=== PATIENT | female | born 1985 | race Caucasian/White ===

== ENCOUNTER 2018-10-19 16:31 | Emergency (ER) | payer OTHER, MEDICAID, SELFPAY ==
[2018-10-19 16:36] VITALS: BP 135/95; PULSE 87; RESP 18; TEMP 36.4; O2SAT 100; BMI 32.4
[2018-10-19] MEDS: ONDANSETRON 4 MG ODT PO (16:41)
--- NOTE | 2018-10-19 18:42 | ED.NAVMDI ---
HPI - Nausea/Vomiting/Diarrhea General Chief complaint: Nausea/Vomiting/Diarrhea Stated complaint: dizzy and vomiting Time Seen by Provider: 10/19/18 18:32 Source: patient Mode of arrival: ambulatory Limitations: no limitations History of Present Illness HPI Narrative: Patient states she nausea and vomiting all day as well as dizziness. She denies diarrhea, fever that is measurable, though she says she has had a feeling of fever and chills, abdominal pain, chest pain, cough, or dysuria. She states she is otherwise healthy. Patient states that she mainly feels dizzy when she moves, but has no history of vertigo. No other complaints this time. She is not known to be . Related Data Previous Rx's Medication Instructions Recorded ondansetron 4 mg PO Q6-8H PRN #7 tab 10/19/18 Allergies Allergy/AdvReac Type Severity Reaction Status Date / Time No Known Drug Allergies Allergy Verified 10/19/18 16:38 Review of Systems Constitutional Denies chills, Denies fever(s), Denies lethargy and Denies weakness Eyes Denies change in vision, Denies eye discharge, Denies irritation and Denies loss of vision ENT Ears, Nose, Mouth, and Throat: Denies change in voice, Reports dizziness, Denies neck pain and Denies sore throat Cardiovascular Denies chest pain, Denies irregular heart rhythm, Denies lightheadedness, Denies palpitations, Denies dyspnea, Denies dyspnea on exertion and Denies orthopnea Respiratory Denies cough, Denies dyspnea, Denies dyspnea on exertion and Denies wheezing Gastrointestinal Gastrointestinal: Denies abdominal pain, Denies change in bowel habits, Denies diarrhea, Reports nausea and Reports vomiting Genitourinary Denies hematuria, Denies flank pain, Denies urinary incontinence and Denies urinary urgency Musculoskeletal Denies neck pain Integumentary/Breasts Denies pruritus, Denies erythema, Denies rash and Denies wounds Neurologic Denies confusion, Reports dizziness, Denies loss of vision and Denies weakness Psychiatric Denies anxiety, Denies confusion, Denies depression, Denies homicidal ideation and Denies suicidal ideation Endocrine Denies palpitations Hematologic/Lymphatic Denies easy bruising Allergic/Immunologic Denies wheezing [facility] Medical History Healthy adult (Acute) Surgical History No pertinent past surgical history (Acute) Social History Smoking Status: Never smoker Exam Initial Vital Signs Initial Vital Signs: Vital Signs Temperature 97.6 F 10/19/18 16:36 Pulse Rate 87 10/19/18 16:36 Respiratory Rate 18 10/19/18 16:36 Blood Pressure 135/95 H 10/19/18 16:36 Pulse Oximetry 100 10/19/18 16:36 Const General: cooperative and well developed Nutritional Appearance: well nourished Orientation: alert, awake, oriented x3 and not confused [facility] Head: normocephalic and atraumatic Ears: external ears normal Nose: external nose normal and No nasal discharge Face and sinus: face symmetric and No dry mucous membranes Mouth: oral mucosae normal and moist mucous membranes Teeth and gingiva: dentition normal Eyes General: appearance normal, both eyes and all related structures Eyelids: eyelids normal Conjunctivae: conjunctivae normal Sclera: sclerae normal Pupils: PERRL EOM: EOM intact bilaterally Neck Neck: normal visual inspection, trachea midline, No lymphadenopathy, No midline deformity and No JVD Lymphatic: No lymphedema Chest Chest: normal inspection of the chest Resp Effort & Inspection: normal respiratory effort, able to speak in complete sentences, no respiratory distress and no use of accessory muscles Auscultation: clear to auscultation bilaterally, no rales, no rhonchi and no wheezes Cardio Rate: regular rate Rhythm: regular rhythm Heart Sounds: no click, no gallops, no murmurs and no rubs Pulses: normal peripheral pulses GI Inspection: non-distended Palpation: soft, no hepatosplenomegaly, No guarding, No pulsatile mass and No tender Back/Spine/Pelvis Back: No CVA tenderness Cervical Spine: cervical ROM normal and No pain with cervical ROM Thoracic/Lumbar Spine: thoracic and lumbar spine normal to inspection Skin General: no rashes or lesions noted, No jaundice and No petechiae Neuro General: alert, oriented x3, gait normal and no focal motor deficits Speech: speech normal Extrem General: full ROM, no clubbing, cyanosis or edema, no pedal edema and no calf tenderness Psych Appearance: well kempt Mental Status: mental status grossly normal Attitude: cooperative Thought Content: normal and suicidality Judgment: judgment good Course Course Narrative: Patient was given ODT Zofran, but she did vomit this up, so IV was started and patient was given IV Zofran. She was also given L 0.9 normal saline. Patient's presentation was benign, and she had no abdominal pain or fever, and I did not feel further workup was indicated. I have advised the patient that she most likely has a viral illness which will be self limited. We have discussed symptomatic management home as well as the usual indications for return. Pt requested one more dose of nausea medicine, so she was given Reglan. Orders Ordered: Discontinued Medications Sodium Chloride (Normal Saline 0.9%) 1,000 mls @ 1,000 mls/hr IV BOLUS ONE Stop: 10/19/18 19:42 Sodium Chloride (Normal Saline 0.9%) 1,000 mls @ 1,000 mls/hr IV BOLUS ONE Stop: 10/19/18 19:42 Last Infusion: 10/19/18 20:02 Dose: 0 mls/hr Admin: 10/19/18 18:47 Dose: 1,000 mls/hr Sodium Chloride (Normal Saline 0.9%) 1,000 mls @ 1,000 mls/hr IV BOLUS ONE Stop: 10/19/18 19:42 Last Admin: 10/19/18 18:45 Dose: Metoclopramide HCl (Reglan) 10 mg IV NOW ONE Stop: 10/19/18 20:20 Last Admin: 10/19/18 20:34 Dose: 10 mg Ondansetron HCl (Zofran Odt) 4 mg PO NOW ONE Stop: 10/19/18 16:39 Last Admin: 10/19/18 16:41 Dose: 4 mg Ondansetron HCl (Zofran) 4 mg IV NOW ONE Stop: 10/19/18 18:44 Last Admin: 10/19/18 18:46 Dose: 4 mg Vital Signs - 8 hr 10/19/18 16:36 10/19/18 19:19 10/19/18 20:40 Temperature 97.6 F Pulse Rate 87 57 L 80 Respiratory Rate 18 12 20 Blood Pressure 135/95 H 118/62 Blood Pressure [Right Arm] 110/61 Pulse Oximetry 100 100 98 MDM - Nausea/Vomiting/Diarrhea Medical Records Attestation: I reviewed the patient's medical records. Discharge Plan Departure Patient Disposition: Home Clinical Impression: Acute viral syndrome, Vomiting Discharge Date/Time: 10/19/18 20:41 Interventions: ED Discharge Assessment Last Done: 10/19/18 20:40 Instructions: DI for Vomiting -- Adult Prescriptions: New ondansetron 4 mg tablet,disintegrating 4 mg PO Q6-8H PRN (Reason: nausea and vomiting) Qty: 7 RF: 0 Referrals: [facility] [Provider Group]
[2018-10-19] MEDS: ONDANSETRON 4 MG/2 ML INJ IV (18:46)
[2018-10-19] MEDS: SODIUM CHLORIDE 0.9% 1,000 ML 1000 ML IV (18:47)
[2018-10-19 19:19] VITALS: BP 110/61; PULSE 57; RESP 12; O2SAT 100
[2018-10-19] MEDS: METOCLOPRAMIDE 10 MG/2 ML INJ IV (20:34)
[2018-10-19 20:40] VITALS: BP 118/62; PULSE 80; RESP 20; O2SAT 98
== END 2018-10-19 20:41 | disposition home or self-care (01) ==
PROVIDERS: Emergency Provider Emergency Medicine
DX: B34.9 Viral infection, unspecified (principal)
CPT/HCPCS: 36591; 99283; J2405; J2765